=== PATIENT | male | born 1990 | race Caucasian/White ===

== ENCOUNTER 2018-10-03 10:45 | Emergency (ER) | payer SELFPAY ==
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
--- NOTE | 2018-10-03 12:13 | RADIOLOGY REPORT (SQ) ---
EXAM DESCRIPTION: FOOT LEFT COMPLETE COMPLETED DATE/TIME: 10/03/2018 11:43 am REASON FOR STUDY: left foot pain COMPARISON: None. NUMBER OF VIEWS: Three views. TECHNIQUE: AP, lateral and oblique radiographic images acquired of the left foot. LIMITATIONS: None. FINDINGS: MINERALIZATION: Normal. BONES: Comminuted fractures of the base of the 3rd metatarsal. Suspect fractures of the 4th metatars al proximal is well. Possible fracture of the lateral 1st cuneiform. JOINTS: No effusions. SOFT TISSUES: No soft tissue swelling. No foreign body. OTHER: No other significant finding. IMPRESSION: Fractures of the base of the 3rd metatarsal possibly of the 4th metatarsal and lateral 1 st cuneiform. COMMENT: Consider CT scan for further evaluation. TECHNICAL DOCUMENTATION: JOB ID: [id number] [employer]- All Rights Reserved Reading location - IP/workstation name: [email or web address]
[2018-10-03] MEDS ORDERED: IBUPROFEN 800 MG TABLET PO ONE (12:19)
[2018-10-03 12:25] VITALS: BP 125/78
== END 2018-10-03 12:39 | disposition home or self-care (01) ==
LOC: ER 10:45
DX: S92.335A Nondisplaced fracture of third metatarsal bone, left foot, initial encounter for closed fracture (principal); M79.672 Pain in left foot; Y04.0XXA Assault by unarmed brawl or fight, initial encounter; Y92.59 Other trade areas as the place of occurrence of the external cause
CPT/HCPCS: 99283